=== PATIENT | male | born 1995 | race Caucasian/White ===

== ENCOUNTER 2016-12-22 15:18 | Emergency (ER) | payer OTHER ==
[2016-12-22 16:10] VITALS: BP 123/66
--- NOTE | 2016-12-22 16:24 | UC ---
Lower Extremity/Ankle HPI - HPI Summary HPI Summary: twisted left foot and ankle in a ditch 2 days ago--continues to be painful to weight bear pain in lateral lower fibula - History of Current Complaint Chief Complaint: UCLowerExtremity Stated Complaint: LEFT ANKLE INJURY Time Seen by Provider: 12/22/16 16:22 Hx Obtained From: Patient Onset/Duration: Sudden Onset, Lasting Days - 2, Still Present Severity Initially: Moderate Severity Currently: Moderate Pain Intensity: 6 Pain Scale Used: 0-10 Numeric Aggravating Factor(s): Standing, Ambulation Alleviating Factor(s): Rest, Elevation, OTC Meds Able to Bear Weight: Yes - with pain - Allergies/Home Medications Allergies/Adverse Reactions: Allergies Allergy/AdvReac Type Severity Reaction Status Date / Time Penicillins Allergy Hives Verified 12/22/16 16:04 PMH/Surg Hx/FS Hx/Imm Hx Previously Healthy: Yes - Surgical History Surgical History: None - Family History Known Family History: Positive: Cardiac Disease - Social History Occupation: Student Lives: With Family Alcohol Use: Weekly Substance Use Type: None Smoking Status (MU): Current Some Day Smoker Type: Cigarettes Amount Used/How Often: 1 can weekly Cessation Counseling: Patient Advised to Stop Review of Systems Constitutional: Negative Skin: Negative Eyes: Negative ENT: Negative Respiratory: Negative Cardiovascular: Negative Gastrointestinal: Negative Genitourinary: Negative Motor: Negative Neurovascular: Negative Musculoskeletal: Negative, Arthralgia - lateral left ankle, Other: - no achellies pain Neurological: Negative Psychological: Negative All Other Systems Reviewed And Are Negative: Yes Physical Exam Triage Information Reviewed: Yes Appearance: Well-Appearing, No Pain Distress, Well-Nourished Vital Signs: Initial Vital Signs Temp 97.5 F 12/22/16 16:05 Pulse 75 12/22/16 16:05 Resp 16 12/22/16 16:05 BP 123/66 12/22/16 16:05 Pulse Ox 98 12/22/16 16:05 Vital Signs Reviewed: Yes Eye Exam: Normal Eyes: Positive: Conjunctiva Clear ENT Exam: Normal ENT: Positive: Normal ENT inspection, Hearing grossly normal. Negative: Nasal congestion, Nasal drainage, Trismus, Muffled/hoarse voice Dental Exam: Normal Neck exam: Normal Neck: Positive: Supple, Nontender, No Lymphadenopathy Respiratory Exam: Normal Respiratory: Positive: Chest non-tender, Lungs clear, Normal breath sounds, No respiratory distress, No accessory muscle use Cardiovascular Exam: Normal Cardiovascular: Positive: RRR, No Murmur, Pulses Normal, Brisk Capillary Refill Musculoskeletal Exam: Normal Musculoskeletal: Positive: ROM Intact, Strength Limited @ - left foot/ankle do to pain, Edema @ - lateral left ankle Neurological Exam: Normal Neurological: Positive: Alert, Muscle Tone Normal Psychological Exam: Normal Skin Exam: Normal Diagnostics - Radiology No standard instances Xray Interpretation: No Acute Changes Radiology Interpretation Completed By: Radiologist Re-Evaluation - Re-Evaluation First Eval Change: Improved - bossman, bossman, tori---n/m/c intact increase cpmfort Lower Extremity Course/Dx - Course Course Of Treatment: rice, bossman, gel splint, crutches, ibuprofen follow with ortho in 4 days - Differential Dx/Diagnosis Differential Diagnosis/HQI/PQRI: Contusion, Fracture (Closed), Sprain, Strain Provider Diagnoses: Left ankle sprain Discharge - Discharge Plan Condition: Stable Disposition: HOME Prescriptions: Ibuprofen TAB* [Motrin TAB* 600 MG] 600 mg PO Q6H PRN #40 tab PRN Reason: Pain Patient Education Materials: Ankle Sprain (ED), Crutch Instructions (ED), Ankle Stirrup Splint (ED), RICE Therapy (ED), Non Weight Bearing Activity (ED) Referrals: Rayray Trujillo MD [Medical Doctor] - 4 Days Non Staff,Doctor [Primary Care Provider] -
[2016-12-22] MEDS ORDERED: Ibuprofen TAB* 600 MG PO ONE (16:38)
--- NOTE | 2016-12-22 16:48 | RAD ---
Indication: Lateral ankle pain. 3 views of left ankle demonstrates no fracture. No other bone or joint abnormality is noted. IMPRESSION: No fracture of the left ankle is noted.
== END 2016-12-22 17:10 | disposition home or self-care (01) ==
LOC: UCCORT 15:18
DX: S93.402A Sprain of unspecified ligament of left ankle, initial encounter (principal); X50.1XXA Overexertion from prolonged static or awkward postures, initial encounter; Y93.9 Activity, unspecified; Y92.89 Other specified places as the place of occurrence of the external cause; Z88.0 Allergy status to penicillin; Z72.0 Tobacco use
CPT/HCPCS: 99214; A9270-GY; G0463